=== PATIENT | male | born 1970 | race Caucasian/White ===

== ENCOUNTER 2016-10-09 10:05 | Emergency (ER) | payer BC ==
[~2016-10-09] VITALS: Ht 172.7 cm; Wt 88.0 kg
[2016-10-09 10:15] VITALS: BP_SYST 137
--- NOTE | 2016-10-09 10:15 | NUR ---
ER Dr. LEW at bedside examining patient.
--- NOTE | 2016-10-09 10:15 | NUR ---
Patient to ER bed 8 to gown for evaluation. Side rails up. Report received from Sue POTTER.
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
--- NOTE | 2016-10-09 10:40 | NUR ---
Pt sleeping easily aroused.
[2016-10-09 11:40] VITALS: BP_SYST 136
--- NOTE | 2016-10-09 11:40 | NUR ---
Patient given written and verbal discharge instructions and verbalizes understanding. ER MD discussed with patient the results and treatment provided. Patient in stable condition. ID arm band removed. Rx of motrin,ultram given. Patient educated on pain management and to follow up with PMD. Pain Scale 2. Opportunity for questions provided and answered.
== END 2016-10-09 11:40 | disposition home or self-care (01) ==
LOC: SED 10:05
DX: S01.112A Laceration without foreign body of left eyelid and periocular area, initial encounter (principal); S01.111A Laceration without foreign body of right eyelid and periocular area, initial encounter; H11.33 Conjunctival hemorrhage, bilateral; K21.9 Gastro-esophageal reflux disease without esophagitis; J45.909 Unspecified asthma, uncomplicated; Z88.6 Allergy status to analgesic agent; Y04.0XXA Assault by unarmed brawl or fight, initial encounter; Y93.89 Activity, other specified; Y92.89 Other specified places as the place of occurrence of the external cause; Y99.8 Other external cause status
CPT/HCPCS: 70450-TC; 70486-TC; 99284